=== PATIENT | male | born 1980 | race Caucasian/White ===

== ENCOUNTER 2020-07-22 04:48 | Emergency (ER) | payer OTHER ==
[~2020-07-22] VITALS: Ht 172.7 cm; Wt 91.0 kg
[2020-07-22] MEDS ORDERED: KETOROLAC 30MG/ML VIAL IV ONE (06:30)
[2020-07-22] MEDS ORDERED: SODIUM CHLORIDE 0.9% 1000ML BAG (SEPSIS BOLUS) IV ONE (06:30)
[2020-07-22] MEDS ORDERED: PIPERACILLIN/TAZ 3.375G PREMIX 50 ML IV ONE (06:30)
[2020-07-22 06:48] LABS: HEMATOCRIT. 38.7 % (42.0-52.0); HEMOGLOBIN. 13.2 g/dL (14.0-18.0); MEAN CORPUSCULAR HEMOGLOBIN 29.7 pg (28.0-32.0); MEAN CORPUSCULAR VOLUME 87.5 fL (80.0-94.0); MEAN PLATELET VOLUME 9.5 fl (7.4-10.4); PLATELET 182 x1000/uL (130-400); RED BLOOD CELL COUNT 4.43 mill/uL (4.7-6.1); RED CELL DISTRIBUTION WIDTH 13.7 % (11.6-14.6)
[2020-07-22 06:52] LABS: CHLORIDE 101 mEq/L (98-107)
[2020-07-22 07:04] LABS: CLARITY URINE CLEAR (CLEAR); COLOR URINE DARK YELLOW (YELLOW); KETONES URINE TRACE (NEGATIVE); LEUKOCYTE ESTERASE URINE NEGATIVE (NEGATIVE); NITRITE URINE NEGATIVE (NEGATIVE); OCCULT BLOOD URINE NEGATIVE (NEGATIVE); PROTEIN URINE 2+ (NEGATIVE); SPECIFIC GRAVITY URINE 1.031 (1.005-1.030)
[2020-07-22 07:07] LABS: PROTHROMBIN TIME 10.5 sec (9.6-11.0)
[2020-07-22] MEDS ORDERED: IOHEXOL-300 100 ML BOTTLE ONE (07:33)
[2020-07-22 09:30] VITALS: BP 112/70
[2020-07-22 12:10] LABS: PLATELET ESTIMATE NORMAL
== END 2020-07-22 11:02 | disposition short-term general hospital (02) ==
LOC: ER 05:28 → CANBEDREQ 10:19 → ER 11:02
DX: H70.91 Unspecified mastoiditis, right ear (principal); R65.10 Systemic inflammatory response syndrome (SIRS) of non-infectious origin without acute organ dysfunction; Z20.822 Contact with and (suspected) exposure to COVID-19
CPT/HCPCS: 36415; 70487; 71045; 80053; 81003; 83605; 83880; 84145; 84484; 85025; 85610; 86140; 87040; 87086; 93005; 96365; 96375; 99285; J1885; J2543; J7030; Q9967; Z7610